=== PATIENT | female | born 1960 | race Caucasian/White ===

== ENCOUNTER 2021-10-11 07:42 | Emergency (ER) | payer OTHER ==
[~2021-10-11] VITALS: Ht 157.5 cm; Wt 54.4 kg
--- NOTE | 2021-10-11 08:12 | NUR ---
PATIENT CAME INTO THE ED FROM HOME WITH A C/C OF LEFT ARM PAIN FROM AN UNASSISTED FALL. RATES THE PAIN A 10/10 ON THE PAIN SCALE. PATIENT REPORTS THAT SHE FELL YEARS AGO AND HAS BROKEN HER ARM BEFORE AND STATES THAT SHE MAY HAVE BROKEN IT AGAIN. HER LEFT FOREARM IS SWOLLEN AND SHE IS CRADLING IT WITH THE OTHER ARM. PATIENT HAS A HISTORY OF HTN, DM2 AND THYROID ISSUES. PATIENT IS UNABLE TO CHANGE INTO GOWN, OR LET NURSE PLACE HER ON THE MONITOR. PENDING MD ORDERS.
--- NOTE | 2021-10-11 08:21 | NUR ---
MD AT BEDSIDE WITH PATIENT.
[2021-10-11] MEDS ORDERED: KETOROLAC TROMETHAMINE 30 MG INJ IM ONE (08:30)
[2021-10-11] MEDS ORDERED: MORPHINE SULFATE 4 MG/1 ML DISP.SYRIN IM ONE (08:30)
[2021-10-11] MEDS ORDERED: MORPHINE SULFATE 4 MG/1 ML DISP.SYRIN ONE (08:42)
[2021-10-11] MEDS ORDERED: KETOROLAC TROMETHAMINE 30 MG INJ ONE (08:43)
--- NOTE | 2021-10-11 09:12 | NUR ---
MEDICATION IS EFFECTIVE IN TREATING PAIN. PATIENT DOES COMPLAIN OF PAIN, ONLY WHEN SHE MOVES HER ARM. PATIENT RATES THE PAIN AT 3-4 OUT OF 10.
[2021-10-11] MEDS ORDERED: LIDOCAINE HCL 1% 20 ML VIAL IJ ONE (10:15)
[2021-10-11] MEDS ORDERED: LIDOCAINE HCL 1% 20 ML VIAL ONE (10:31)
[2021-10-11] MEDS ORDERED: HYDR-4209 PO (11:46)
--- NOTE | 2021-10-11 12:44 | NUR ---
PATIENT BEING DISCHARGED HOME WITH MEDICATIONS. PATIENT VERBALIZED UNDERSTANDING OF TEACHING. PATIEN IS AAOX4, DENIES CHEST PAIN, SHORTNESS OF BREATH AND N/V/D. ARMBAND REMOVED. PATIENT WALKING OUT OF ER WITH BELONGINGS.
[2021-10-11 13:02] VITALS: BP 128/71
== END 2021-10-11 13:03 | disposition home or self-care (01) ==
LOC: ER 07:42
DX: S52.572A Other intraarticular fracture of lower end of left radius, initial encounter for closed fracture (principal); S52.612A Displaced fracture of left ulna styloid process, initial encounter for closed fracture; W01.0XXA Fall on same level from slipping, tripping and stumbling without subsequent striking against object, initial encounter; Y93.K1 Activity, walking an animal; Y92.89 Other specified places as the place of occurrence of the external cause; E11.9 Type 2 diabetes mellitus without complications; I10 Essential (primary) hypertension; Z88.2 Allergy status to sulfonamides
CPT/HCPCS: 73090; 73110; 73130; A4663; J1885; J2270; J3490